=== PATIENT | male | born 1950 | race Caucasian/White ===

== ENCOUNTER 2019-10-06 13:50 | Outpatient (REF) | payer MEDICARE, SELFPAY ==
[2019-10-07 14:25] LABS: Abs Immature Grans 0.02 k/cumm (0.0-0.09); Absolute Basophil Count 0.02 k/cumm (0.0-0.2); Absolute Eosinophil Count 0.36 k/cumm (0.0-0.7); Absolute Lymphocyte Count 2.34 k/cumm (1.2-3.4); Absolute Monocyte Count 0.93 k/cumm (0.11-0.7); Absolute Neutrophil Count 6.76 k/cumm (1.2-6.7); Basophils % 0.2; Eosinophils % 3.5; HCT 41.1 % (40.0-50.0); HGB 13.6 g/dL (13.5-17.5); Immature Grans % 0.2 %; Lymphocytes % 22.4; Mean Corp. HGB Concentration 33.1 g/dL (32.0-36.0); Mean Corpuscular Hemoglobin 29.5 pg (27.0-33.0); Mean Corpuscular Volume 89.2 fL (80-95); Mean Platelet Volume 10.3 fL (8.0-11.0); Monocytes % 8.9; Neutrophils % 64.8; Platelet Count 246 x1000/uL (130-400); RBC 4.61 m/cumm (4.50-6.00); RBC Distribution Width 15.6 % (11.8-14.1); White Blood Cell Count 10.43 k/cumm (4.4-10.8)
== END 2019-10-06 14:10 ==
LOC: LBN 13:50
PROVIDERS: PCP Nurse Practitioner Family; Visit Provider Registered Nurse
DX: R10.9 Unspecified abdominal pain (principal)
CPT/HCPCS: 85025

== ENCOUNTER 2020-10-17 16:19 | Outpatient (REF) | payer MEDICARE, SELFPAY ==
[2020-10-17 21:54] LABS: TSH (W/Ref FT4) 4.07 uIU/mL (0.36-3.74)
[2020-10-17 22:18] LABS: FREE T4 0.82 ng/dL (0.76-1.46)
== END 2020-10-17 16:20 | disposition home or self-care (01) ==
LOC: NCHCN 16:19
PROVIDERS: PCP Nurse Practitioner Family; Visit Provider Registered Nurse
DX: M35.3 Polymyalgia rheumatica (principal); Z79.899 Other long term (current) drug therapy
CPT/HCPCS: 84439; 84443

== ENCOUNTER 2020-12-05 10:21 | Outpatient (REF) | payer MEDICARE, SELFPAY ==
[2020-12-05 22:16] LABS: PSA, Diagnostic 18.1 ng/mL (0.0-6.5)
== END 2020-12-05 10:22 | disposition home or self-care (01) ==
LOC: NCHCN 10:21
PROVIDERS: PCP Nurse Practitioner Family; Visit Provider Registered Nurse
DX: R97.20 Elevated prostate specific antigen [PSA] (principal)
CPT/HCPCS: 84153

== ENCOUNTER 2021-11-13 16:53 | Outpatient (REF) | payer MEDICARE, BC, SELFPAY ==
[2021-11-13 22:06] LABS: Abs Immature Grans 0.02 10^3/uL (0.0-0.06); Absolute Basophil Count 0.04 10^3/uL (0.0-0.2); Absolute Eosinophil Count 0.21 10^3/uL (0.0-0.7); Absolute Lymphocyte Count 0.61 10^3/uL (1.2-3.4); Absolute Monocyte Count 0.78 10^3/uL (0.1-0.8); Absolute Neutrophil Count 6.49 10^3/uL (1.2-6.7); Basophils % 0.5; Eosinophils % 2.6; HGB 12.2 g/dL (13.5-17.5); Immature Grans % 0.2; Lymphocytes % 7.5; MCH 28.6 pg (27.0-33.0); MCV 87 fL (80-95); MPV 10.1 fL (8.0-11.0); Monocytes % 9.6; Neutrophils % 79.6; Platelet Count 249 10^3/uL (130-400); RBC 4.26 10^6/uL (4.36-5.78); RDW 14.6 % (11.8-14.1); RDW-SD 47.2 fL; WBC 8.15 10^3/uL (4.4-10.8)
[2021-11-13 22:25] LABS: TSH 3.37 uIU/mL (0.36-3.74)
== END 2021-11-13 16:54 | disposition home or self-care (01) ==
LOC: NCHCN 16:53
PROVIDERS: PCP Nurse Practitioner Family; Visit Provider Registered Nurse
DX: R94.6 Abnormal results of thyroid function studies (principal); R06.02 Shortness of breath; R53.83 Other fatigue
CPT/HCPCS: 84443; 85025

== ENCOUNTER 2021-11-28 08:47 | Outpatient (REF) | payer MEDICARE, BC, SELFPAY ==
[2021-11-28 14:58] LABS: Abs Immature Grans 0.03 10^3/uL (0.0-0.06); Absolute Basophil Count 0.03 10^3/uL (0.0-0.2); Absolute Eosinophil Count 0.15 10^3/uL (0.0-0.7); Absolute Lymphocyte Count 0.59 10^3/uL (1.2-3.4); Absolute Monocyte Count 0.41 10^3/uL (0.1-0.8); Absolute Neutrophil Count 6.05 10^3/uL (1.2-6.7); Basophils % 0.4; Eosinophils % 2.1; HCT 34.8 % (40.0-50.0); HGB 11.4 g/dL (13.5-17.5); Immature Grans % 0.4; Lymphocytes % 8.1; MCHC 32.8 % (32.0-36.0); MCV 89 fL (80-95); MPV 9.9 fL (8.0-11.0); Monocytes % 5.6; Neutrophils % 83.4; Platelet Count 244 10^3/uL (130-400); RBC 3.93 10^6/uL (4.36-5.78); RDW 15.3 % (11.8-14.1); RDW-SD 49.9 fL; WBC 7.26 10^3/uL (4.4-10.8)
[2021-11-28 15:58] LABS: Iron 60 ug/dL (65-175); Total Iron Binding Capacity 225 ug/dL (250-450)
[2021-11-28 16:10] LABS: Ferritin 298 ng/mL (26-388)
== END 2021-11-28 08:48 | disposition home or self-care (01) ==
LOC: NCHCN 08:47
PROVIDERS: PCP Nurse Practitioner Family; Visit Provider Registered Nurse
DX: D64.9 Anemia, unspecified (principal)
CPT/HCPCS: 82728; 83540; 83550; 85025

== ENCOUNTER 2021-12-18 16:41 | Outpatient (REF) | payer MEDICARE, BC, SELFPAY ==
[2021-12-18 15:21] LABS: Abs Immature Grans 0.03 10^3/uL (0.0-0.06); Absolute Basophil Count 0.04 10^3/uL (0.0-0.2); Absolute Eosinophil Count 0.23 10^3/uL (0.0-0.7); Absolute Lymphocyte Count 0.35 10^3/uL (1.2-3.4); Absolute Monocyte Count 0.75 10^3/uL (0.1-0.8); Absolute Neutrophil Count 9.25 10^3/uL (1.2-6.7); Basophils % 0.4; Eosinophils % 2.2; HCT 38.7 % (40.0-50.0); HGB 12.6 g/dL (13.5-17.5); Immature Grans % 0.3; Lymphocytes % 3.3; MCH 28.8 pg (27.0-33.0); MCHC 32.6 % (32.0-36.0); MCV 89 fL (80-95); Neutrophils % 86.8; Platelet Count 205 10^3/uL (130-400); RBC 4.37 10^6/uL (4.36-5.78); RDW 15.5 % (11.8-14.1); RDW-SD 50.6 fL; WBC 10.65 10^3/uL (4.4-10.8)
== END 2021-12-18 16:42 | disposition home or self-care (01) ==
LOC: NCHCN 16:41
PROVIDERS: PCP Nurse Practitioner Family; Visit Provider Registered Nurse
DX: D64.9 Anemia, unspecified (principal)
CPT/HCPCS: 85025

== ENCOUNTER 2023-12-28 23:43 | Outpatient (REF) | payer MEDICARE, BC, SELFPAY ==
[2023-12-28 22:10] LABS: Abs Immature Grans 0.01 10^3/uL (0.0-0.06); Absolute Basophil Count 0.03 10^3/uL (0.0-0.2); Absolute Eosinophil Count 0.24 10^3/uL (0.0-0.7); Absolute Lymphocyte Count 1.13 10^3/uL (1.2-3.4); Absolute Monocyte Count 0.55 10^3/uL (0.1-0.8); Absolute Neutrophil Count 4.76 10^3/uL (1.2-6.7); Basophils % 0.4 %; Eosinophils % 3.6 %; HCT 39.2 % (40.0-50.0); HGB 12.9 g/dL (13.5-17.5); Immature Grans % 0.1 %; Lymphocytes % 16.8 %; MCH 29.6 pg (27.0-33.0); MCHC 32.9 % (32.0-36.0); MCV 90 fL (80-95); MPV 10.1 fL (8.0-11.0); Monocytes % 8.2 %; Neutrophils % 70.9 %; Platelet Count 210 10^3/uL (130-400); RBC 4.36 10^6/uL (4.36-5.78); RDW 14.8 % (11.8-14.1); RDW-SD 48.5 fL; WBC 6.72 10^3/uL (4.4-10.8)
[2023-12-28 22:25] LABS: ALT 21 U/L (16-63); AST 15 U/L (15-37); Albumin 3.6 g/dL (3.4-5.0); Alkaline Phosphatase 74 U/L (46-116); BUN 25 mg/dL (7-18); Bilirubin, Total 0.34 mg/dL (0.2-1.0); CREATININE 0.9 mg/dL (0.70-1.30); Calculated LDL 142 mg/dL (<100); Chloride 106 mmol/L (98-107); Cholesterol 228 mg/dL (<200); Estimated GFR 90.18 (mL/min/1.73m2); Glucose 105 mg/dL (74-106); HDL Cholesterol 78 mg/dL (40-60); Potassium 4.2 mmol/L (3.5-5.1); Sodium 142 mmol/L (136-145); Total Protein 6.8 g/dL (6.4-8.2); Triglyceride 44 mg/dL (<150)
[2023-12-29 19:45] LABS: PSA, Screening <0.1 ng/mL (<=6.5)
== END 2023-12-28 23:44 | disposition home or self-care (01) ==
LOC: NCHCN 23:43
PROVIDERS: PCP Nurse Practitioner Family; Visit Provider Family Medicine
DX: D64.9 Anemia, unspecified (principal); E78.5 Hyperlipidemia, unspecified; R97.20 Elevated prostate specific antigen [PSA]; Z12.5 Encounter for screening for malignant neoplasm of prostate
CPT/HCPCS: 80053; 80061; 84153; 85025

== ENCOUNTER 2025-01-02 18:33 | Outpatient (REF) | payer MEDICARE, BC, SELFPAY ==
[2025-01-02 15:18] LABS: Abs Immature Grans 0.01 10^3/uL (0.0-0.06); HCT 40.5 % (40.0-50.0); HGB 13.0 g/dL (13.5-17.5); Immature Grans % 0.2 %; MCH 29.7 pg (27.0-33.0); MCHC 32.1 % (32.0-36.0); MCV 93 fL (80-95); MPV 10.0 fL (8.0-11.0); Platelet Count 223 10^3/uL (130-400); RBC 4.38 10^6/uL (4.36-5.78); RDW 16.3 % (11.8-14.1); RDW-SD 54.4 fL; WBC 5.60 10^3/uL (4.4-10.8)
[2025-01-02 15:43] LABS: Iron 61 ug/dL (65-175); Total Iron Binding Capacity 291 ug/dL (250-450); Transferrin Sat 21 % (20-55)
[2025-01-02 16:00] LABS: ALT 40 U/L (16-63); AST 27 U/L (15-37); Albumin 3.8 g/dL (3.4-5.0); Alkaline Phosphatase 80 U/L (46-116); Anion Gap 5.4 mmol/L (3-11); BUN 17 mg/dL (7-18); Bilirubin, Total 0.4 mg/dL (0.2-1.0); CO2 31.6 mmol/L (21.0-32.0); Calcium 9.5 mg/dL (8.5-10.1); Chloride 105 mmol/L (98-107); Estimated GFR 92.87 (mL/min/1.73m2); Glucose 95 mg/dL (74-106); Potassium 4.3 mmol/L (3.5-5.1); Sodium 142 mmol/L (136-145); TSH 8.17 uIU/mL (0.36-3.74); Total Protein 7.7 g/dL (6.4-8.2)
[2025-01-02 16:25] LABS: Ferritin 412 ng/mL (26-388)
== END 2025-01-02 18:34 | disposition home or self-care (01) ==
LOC: NCHCN 18:33
PROVIDERS: PCP Nurse Practitioner Family; Visit Provider Family Medicine
DX: D64.9 Anemia, unspecified (principal); R53.83 Other fatigue
CPT/HCPCS: 80053; 82728; 83540; 83550; 84443; 85025